=== PATIENT | female | born 1960 | race Caucasian/White ===

== ENCOUNTER 2021-02-02 17:49 | Emergency (ER) | payer OTHER, SELFPAY ==
--- NOTE | 2021-02-02 17:55 | ED.WOUNDLAC ---
HPI - Wound/Laceration General Stated Complaint: cut finger Time Seen by Provider: 02/02/21 18:06 Source: patient Mode of arrival: ambulatory Limitations: no limitations History of Present Illness HPI narrative: 50-year-old woman comes in today complaining of laceration to the tip of her right long finger. She states she was using a mandolin. It happened within the last hour period. she could get it to stop bleeding. She states her last tetanus was 5 years ago. Onset (ago): hour(s) (1) Extremity Location: Right: hand Place: home Patient tetanus UTD: Yes Context: accidental Associated symptoms: none Review of Systems Constitutional: Constitutional: Denies chills and Denies fever(s) Musculoskeletal: Musculoskeletal: Denies arthralgias, Denies joint swelling and Denies muscle cramps Integumentary/Breasts: Skin/Breast: Denies pruritus, Denies erythema and Denies rash Hematologic/Lymphatic: Hematologic/Lymphatic: Denies easy bleeding and Denies easy bruising PMFSH Past Medical History Medical History (Updated 02/02/21 @ 18:13 by lAex Bailey MD) Hypertension Rheumatoid arthritis Social History Social History (Updated 02/02/21 @ 18:08 by Alex Bailey MD) Smoking status: Never smoker Substance use: never Living arrangements: with family Exam Const: General: healthy appearing, no acute distress and alert Orientation/consciousness: patient oriented x3 Resp: Effort & Inspection: normal respiratory effort and not labored Auscultation: clear to auscultation bilaterally, no rales, no rhonchi and no wheezes Cardio: Rate: regular rate Rhythm: regular rhythm Heart sounds: no murmurs Skin: General skin exam: normal color, no jaundice and no pallor Rashes: no rashes Other: There is a 3 mm by 6 mm skin avulsion into but not through the dermis on the tip of the right long finger where there is active bleeding. Neuro: General: patient oriented x3, moves all extremities and no focal motor deficits Extrem: General: normal to inspection and no clubbing, cyanosis or edema Psych: Mental Status: mental status grossly normal Affect: normal affect Attitude: cooperative Procedures Laceration Laceration 1: Date: 02/02/21 Time: 18:10 Site: upper extremity Side (If applicable): right Size (cm): 0.6 Description: irregular Depth: simple, single layer Pre-repair: wound explored and other ( Her wound scrubed x3 with Hibiclens) ====== Skin Level ====== Skin layer closed with: other (small patch of Surgicel applied to wound for hemostasis. No sutures) ====== Subcutaneous Layer ====== ====== Muscle Layer ====== ====== Tendon Layer ====== Discharge Plan Discharge Clinical Impression: Finger laceration Qualifiers: Encounter type: initial encounter Finger: middle finger Damage to nail status: without damage Foreign body presence: without foreign body Laterality: right Qualified Code(s): S61.212A - Laceration without foreign body of right middle finger without damage to nail, initial encounter Patient Disposition: Home, Self-Care Condition: Stable Instructions: Laceration (ED) Additional Instructions: Keep the wound clean and dry. Follow-up/Referrals: Yousif,MD Fareed [Primary Care Provider] - Time of Disposition: 18:13
[2021-02-02 18:00] VITALS: BP 130/80; PULSE 70; RESP 16; TEMP 36.8; O2SAT 99
--- NOTE | 2021-02-02 18:17 | PC.NURSE ---
1755 cleaned with hiclens & wound cleaneser. 1800MD applied surgicel & non stick dressing 1818 tubular dressing applied by underwriter solicitation director
[2021-02-02 18:22] VITALS: BP 140/87; PULSE 78; RESP 18; TEMP 36.6; O2SAT 96
== END 2021-02-02 18:25 | disposition home or self-care (01) ==
PROVIDERS: Emergency Provider Emergency Medicine; PCP Family Medicine
DX: S61.212A Laceration without foreign body of right middle finger without damage to nail, initial encounter (principal); W26.0XXA Contact with knife, initial encounter
CPT/HCPCS: 12001; 99282